=== PATIENT | male | born 1960 | race Caucasian/White ===

== ENCOUNTER 2016-03-16 17:27 | Emergency (ER) | payer OTHER ==
[~2016-03-16] VITALS: Ht 175.3 cm; Wt 119.6 kg
[~2016-03-16 17:27] MED LIST: ASPIR-LOW81 MG PO; ATENOLOL100 MG PO; ATORVASTATIN CA40 MG PO; BACTRIM,SEPT1 TABLET PO; BENAZEPRIL HCL40 MG PO; CIPRO500 MG PO; FENOFIBRATE54 M1 PO; GLIPIZIDE5 MG PO; LISINOPRIL10 MG PO; METFORMIN HCL1000 M1 PO; OXYCODONE H5 MG/5 ML PO; PANTOPRAZOLE SO40 MG PO
[2016-03-16 18:41] LABS: HEMATOCRIT 38.4 % (38.0-50.0); MCH 30.4 PG (29.0-34.0); MCHC 34.4 G/DL (30.0-36.0); MCV 88.5 FL (86-99); MEAN PLAT.VOLUME 8.7 uM^3 (9.0-12.4); PLATELET COUNT 210 K/uL (156-360); RBC DIS.WIDTH-CV 12.9 % (11.8-14.6); RBC DIS.WIDTH-SD 40.8 % (39-53); RED BLOOD COUNT 4.34 M/uL (4.00-5.50); WHITE BLOOD COUNT 9.1 K/uL (4.1-10.2)
[2016-03-16 18:52] LABS: CHLORIDE 109 mEq/L (99-109); SODIUM 139 mEq/L (136-147)
[2016-03-16 18:53] LABS: GLUCOSE 149 mg/dL (70-99)
[2016-03-16 18:55] LABS: ANION GAP 9 MEQ/L (2-14)
[2016-03-16 18:57] LABS: GFR ESTIMATE (CALCULATED) > 59 mL/min/
[2016-03-16 18:58] LABS: UREA NITROGEN (BUN) 17 mg/dL (9-23)
[2016-03-16 19:01] LABS: TROP-I INTERPRETATION NEGATIVE; TROPONIN-I < 0.01 ng/mL (0.0-0.30)
[2016-03-16] MEDS ORDERED: CARAFATE100 MG/ML PO (20:57)
[2016-03-16 21:33] VITALS: BP 117/84
== END 2016-03-16 22:05 | disposition home or self-care (01) ==
LOC: EME 17:27
PROVIDERS: Emergency Medicine
DX: R07.9 Chest pain, unspecified (principal); Z87.891 Personal history of nicotine dependence
CPT/HCPCS: 71010; 80048; 84484; 85027; 93005; 99281; 99284

== ENCOUNTER 2016-05-22 10:58 | Observation (INO) | payer OTHER ==
[~2016-05-22] VITALS: Ht 175.3 cm; Wt 117.1 kg
[~2016-05-22 10:58] MED LIST changes: +CARAFATE100 MG/ML PO
[2016-05-22 12:14] LABS: HEMATOCRIT 42.7 % (38.0-50.0); MCH 30.3 PG (29.0-34.0); MCV 89.1 FL (86-99); MEAN PLAT.VOLUME 9.1 uM^3 (9.0-12.4); PLATELET COUNT 250 K/uL (156-360); RBC DIS.WIDTH-CV 12.6 % (11.8-14.6); RBC DIS.WIDTH-SD 41.1 % (39-53); RED BLOOD COUNT 4.79 M/uL (4.00-5.50); WHITE BLOOD COUNT 8.7 K/uL (4.1-10.2)
[2016-05-22 12:25] LABS: CHLORIDE 104 mEq/L (99-109); POTASSIUM 3.8 mEq/L (3.7-5.4); SODIUM 136 mEq/L (136-147)
[2016-05-22 12:26] LABS: GLUCOSE 236 mg/dL (70-99)
[2016-05-22 12:28] LABS: ANION GAP 12 MEQ/L (2-14)
[2016-05-22 12:30] LABS: GFR ESTIMATE (CALCULATED) > 59 mL/min/
[2016-05-22 12:31] LABS: UREA NITROGEN (BUN) 19 mg/dL (9-23)
[2016-05-22 12:35] LABS: TROP-I INTERPRETATION NEGATIVE; TROPONIN-I < 0.01 ng/mL (0.0-0.30)
[2016-05-22] MEDS ORDERED: LISINOPRIL5 MG PO (15:45)
[2016-05-22] MEDS ORDERED: LO-DOSE ASPIRIN81 M2 PO (15:46)
[2016-05-22] MEDS ORDERED: CITALOPRAM HBR10 MG PO (15:47)
[2016-05-22 16:32] LABS: Estimated Average Glucose 229 mg/dL (70-123); HEMOGLOBIN A1c (GLYCOHEMOGLOB) 9.6 % HGB (Below 5.7)
[2016-05-22 16:37] VITALS: BP 137/85
[2016-05-22 17:50] LABS: POINT-OF-CARE METER ID UU13113700
[2016-05-22 18:59] LABS: D-DIMER ELISA 0.21 mg/L FEU (< 0.57)
[2016-05-22 19:00] LABS: TROP-I INTERPRETATION NEGATIVE; TROPONIN-I < 0.01 ng/mL (0.0-0.30)
[2016-05-22 20:06] VITALS: BP 135/86
[2016-05-22 21:54] LABS: POINT-OF-CARE METER ID UU13113700
[2016-05-22 23:37] VITALS: BP 131/83
[2016-05-23 01:34] LABS: TROP-I INTERPRETATION NEGATIVE; TROPONIN-I < 0.01 ng/mL (0.0-0.30)
[2016-05-23 04:39] VITALS: BP 125/75
[2016-05-23 08:45] VITALS: BP 133/80
== END 2016-05-23 11:27 | disposition home or self-care (01) ==
LOC: EME 10:58 → EDOF 13:55 → 5WEST 13:55
PROVIDERS: Internal Medicine; Nurse Practitioner Adult Health
DX: K21.9 Gastro-esophageal reflux disease without esophagitis (principal); R07.89 Other chest pain; I10 Essential (primary) hypertension; E11.9 Type 2 diabetes mellitus without complications; Z87.891 Personal history of nicotine dependence; E66.9 Obesity, unspecified; Z68.38 Body mass index [BMI] 38.0-38.9, adult
CPT/HCPCS: 71020; 80048; 82948; 83036; 84484; 85027; 85379; 93005; 99281; 99283; G0378; J1650; J1815

== ENCOUNTER 2017-02-26 14:27 | Emergency (ER) | payer OTHER ==
[~2017-02-26] VITALS: Ht 175.3 cm; Wt 119.9 kg
[~2017-02-26 14:27] MED LIST changes: +CITALOPRAM HBR10 MG PO; +LISINOPRIL5 MG PO; +LO-DOSE ASPIRIN81 M2 PO
[2017-02-26 15:21] LABS: BASOPHIL (%) 0.4 % (0-1); EOSINOPHIL (%) 1.6 % (0-5); EOSINOPHIL COUNT 0.2 K/uL (0-0.3); HEMATOCRIT 41.8 % (38.0-50.0); HEMOGLOBIN 14.4 G/DL (12.5-16.6); IMMATURE GRANULOCYTE (%) 0.7 % (0.0-0.7); LYMPHOCYTE (%) 25.9 % (15-42); LYMPHOCYTE COUNT 2.6 K/uL (1.0-2.8); MCH 30.8 PG (29.0-34.0); MCHC 34.4 G/DL (30.0-36.0); MCV 89.3 FL (86-99); MONOCYTE COUNT 0.8 K/uL (0-0.8); NEUTROPHIL (%) 63.4 % (45-76); NEUTROPHIL COUNT 6.3 K/uL (1.8-6.4); PLATELET COUNT 232 K/uL (156-360); RBC DIS.WIDTH-CV 12.6 % (11.8-14.6); RBC DIS.WIDTH-SD 41.5 % (39-53); RED BLOOD COUNT 4.68 M/uL (4.00-5.50)
[2017-02-26 15:30] LABS: D-DIMER ELISA < 150.00 ng/mLDDU (<230)
[2017-02-26 15:36] LABS: ALBUMIN 3.5 g/dL (3.2-4.8)
[2017-02-26 15:37] LABS: CHLORIDE 106 mEq/L (99-109); POTASSIUM 4.3 mEq/L (3.7-5.4); SODIUM 134 mEq/L (136-147)
[2017-02-26 15:39] LABS: GLUCOSE 193 mg/dL (70-99); TOTAL PROTEIN 7.4 g/dL (6.4-8.3)
[2017-02-26 15:41] LABS: TOTAL BILIRUBIN 0.4 mg/dL (0.0-1.0)
[2017-02-26 15:42] LABS: ALKALINE PHOSPHATASE 68 IU/L (3-129)
[2017-02-26 15:43] LABS: CREATININE 1.3 mg/dL (0.6-1.3); GFR ESTIMATE (CALCULATED) > 59 mL/min/ (58.99-99999)
[2017-02-26 15:44] LABS: AST (GOT) 16 IU/L (2-34); UREA NITROGEN (BUN) 24 mg/dL (9-23)
[2017-02-26 15:46] LABS: ALT (GPT) 12 IU/L (3-49); LIPASE 48 U/L (1.0-51.0); TROP-I INTERPRETATION NEGATIVE; TROPONIN-I < 0.01 ng/mL (0.0-0.30)
[2017-02-26 19:59] LABS: TROP-I INTERPRETATION NEGATIVE; TROPONIN-I < 0.01 ng/mL (0.0-0.30)
[2017-02-26 23:05] VITALS: BP 123/80
== END 2017-02-26 23:06 | disposition home or self-care (01) ==
LOC: EME 14:27
PROVIDERS: Emergency Medicine; Emergency Medicine Emergency Medical Services
DX: R07.89 Other chest pain (principal); R10.11 Right upper quadrant pain; E11.42 Type 2 diabetes mellitus with diabetic polyneuropathy; I10 Essential (primary) hypertension; K44.9 Diaphragmatic hernia without obstruction or gangrene; K21.9 Gastro-esophageal reflux disease without esophagitis; Z79.4 Long term (current) use of insulin; Z79.82 Long term (current) use of aspirin; Z87.891 Personal history of nicotine dependence
CPT/HCPCS: 71045; 76705; 80053; 83690; 84484; 85025; 85379; 93005; 99281; 99285; S0028

== ENCOUNTER 2017-06-07 10:08 | Observation (INO) | payer OTHER ==
[~2017-06-07] VITALS: Ht 175.3 cm; Wt 119.0 kg
[2017-06-07 11:27] LABS: HEMATOCRIT 40.5 % (38.0-50.0); MCH 31.1 PG (29.0-34.0); MCHC 34.6 G/DL (30.0-36.0); PLATELET COUNT 216 K/uL (156-360); RBC DIS.WIDTH-CV 12.7 % (11.8-14.6); WHITE BLOOD COUNT 8.4 K/uL (4.1-10.2)
[2017-06-07 11:35] LABS: CHLORIDE 105 mEq/L (99-109); POTASSIUM 4.1 mEq/L (3.7-5.4); SODIUM 138 mEq/L (136-147)
[2017-06-07 11:37] LABS: GLUCOSE 190 mg/dL (70-99)
[2017-06-07 11:41] LABS: CREATININE 1.2 mg/dL (0.6-1.3); GFR ESTIMATE (CALCULATED) > 59 mL/min/ (58.99-99999)
[2017-06-07 11:42] LABS: UREA NITROGEN (BUN) 21 mg/dL (9-23)
[2017-06-07 12:01] LABS: D-DIMER ELISA < 150.00 ng/mLDDU (<230)
[2017-06-07 12:02] LABS: TROP-I INTERPRETATION NEGATIVE; TROPONIN-I < 0.01 ng/mL (0.0-0.30)
[2017-06-07] MEDS ORDERED: GLUCOTROL5 MG PO (13:44)
[2017-06-07 16:08] VITALS: BP 124/68
[2017-06-07 18:24] LABS: TROP-I INTERPRETATION NEGATIVE; TROPONIN-I < 0.01 ng/mL (0.0-0.30)
[2017-06-07 18:45] VITALS: BP 127/69
[2017-06-07 23:42] VITALS: BP 119/71
[2017-06-08 01:09] LABS: TROP-I INTERPRETATION NEGATIVE; TROPONIN-I < 0.01 ng/mL (0.0-0.30)
[2017-06-08 03:48] VITALS: BP 129/72
[2017-06-08 07:26] VITALS: BP 127/82
[2017-06-08] MEDS ORDERED: PRAVASTATIN SOD40 MG PO (10:46)
[2017-06-08 11:05] VITALS: BP 133/82
[2017-06-08 11:12] LABS: HDL CHOLESTEROL 35 MG/DL (Desirable>=40); LDL CHOLESTEROL 74 mg/dL (Desirable<100); NON-HDL CHOLESTEROL 107 mg/dL (Desirable<160); TOTAL CHOLESTEROL 142 mg/dL (Desirable<200); TRIGLYCERIDES 167 MG/DL (Normal: <150)
== END 2017-06-08 12:01 | disposition home or self-care (01) ==
LOC: EME 10:08 → 5WEST 13:13 → EDOF 13:13 → ENRESERV 13:31 → EDOF 13:36 → ENRESERV 15:02 → 5WEST 15:40
PROVIDERS: Hospitalist; Physician Assistant
DX: R07.9 Chest pain, unspecified (principal); M79.602 Pain in left arm; R06.02 Shortness of breath; R61 Generalized hyperhidrosis; I10 Essential (primary) hypertension; E11.42 Type 2 diabetes mellitus with diabetic polyneuropathy; Z82.49 Family history of ischemic heart disease and other diseases of the circulatory system; E11.65 Type 2 diabetes mellitus with hyperglycemia; E78.5 Hyperlipidemia, unspecified; E66.9 Obesity, unspecified; Z68.38 Body mass index [BMI] 38.0-38.9, adult; F41.9 Anxiety disorder, unspecified; Z87.891 Personal history of nicotine dependence; Z79.82 Long term (current) use of aspirin; Z79.84 Long term (current) use of oral hypoglycemic drugs; F32.9 Major depressive disorder, single episode, unspecified
CPT/HCPCS: 71046; 73030; 80048; 80061; 84484; 85027; 85379; 93005; 93971; 99281; 99285; G0378; J1644